=== PATIENT | female | born 1965 | race Caucasian/White ===

== ENCOUNTER 2016-07-23 17:25 | Emergency (ER) | payer MEDICAID, OTHER ==
[~2016-07-23] VITALS: Ht 162.6 cm; Wt 113.4 kg
[~2016-07-23 17:25] MED LIST: no home meds
[2016-07-23 17:32] VITALS: BP_SYST 141
[2016-07-23 18:03] LABS: BILIRUBIN,URINE NEGATIVE (NEGATIVE); BLOOD, URINE 3+ (NEGATIVE); CLARITY/URINE CLOUDY (CLEAR); COLOR,URINE YELLOW (YELLOW); GLUCOSE,URINE NEGATIVE (NEGATIVE); KETONES,URINE NEGATIVE (NEGATIVE); LEUKOCYTE ESTERASE ,URINE 2+ (NEGATIVE); NITRITE, URINE NEGATIVE (NEGATIVE); PROTEIN URINE 2+ (NEGATIVE); UROBILINOGEN,URINE 0.2 (0.2-1.0)
[2016-07-23 18:09] LABS: BACTERIA,URINE MANY /HPF (None Seen); MUCUS,URINE None Seen /LPF (None Seen); URINE AMORPHOUS PHOSPHATES 2+ /HPF (None Seen); WBC,URINE >100 /HPF (0-3)
[2016-07-23] MEDS ORDERED: SULFAMETHOXAZOLE/TRIMETHOPR DS 1 TABLET PO ONE (18:15)
[2016-07-23] MEDS ORDERED: PHENAZOPYRIDINE HCL 100 MG TABLET PO ONE (18:15)
[2016-07-23 18:24] VITALS: BP_SYST 138
== END 2016-07-23 18:24 | disposition home or self-care (01) ==
LOC: SED 17:25
DX: N39.0 Urinary tract infection, site not specified (principal); J45.909 Unspecified asthma, uncomplicated
CPT/HCPCS: 81000-TC; 87086; 87186-TC; 99284